=== PATIENT | female | born 2000 | race Caucasian/White ===

== ENCOUNTER 2021-06-15 21:07 | Emergency (ER) | payer SELFPAY ==
[2021-06-15 21:54] VITALS: BP 136/92; PULSE 108; RESP 18; TEMP 36.3; O2SAT 98
[2021-06-16 00:25] VITALS: BP 110/73; PULSE 95; RESP 16; O2SAT 98
[2021-06-16 00:58] LABS: Add Urine Microscopic? YES; Appearance Urine Cloudy (Clear); Bilirubin Urine Negative (Negative); Blood Urine Negative (Negative); Color Urine Yellow (Yellow); Glucose Urine UA Negative (Negative); Ketones Urine Negative (Negative); Leukocyte Esterase Ur 1+ LEU/UL (Negative); Mucus Urine Rare /lpf; Nitrate Urine Negative (Negative); Protein Urine Negative (Negative); Specific Grav Ur 1.029 (1.001-1.035); Squamous Epithelial Cell Urine Many /hpf (Few)
--- NOTE | 2021-06-16 01:29 | ED.GENADULT ---
HPI - General Adult General Chief complaint: Shortness of Breath/Dyspnea Stated complaint: Cough Time Seen by Provider: 06/16/21 00:13 History of Present Illness HPI narrative: Patient is a 20-year-old female who presents ER with reports of runny nose and sore throat. Ongoing over the last 2 days. Her son has similar symptoms as does another individual in the house. Son just tested positive for RSV. Patient reports no fevers or chills or sweats. She also has concerned that she could be . Unknown LMP. Review of Systems Review of Systems: All systems reviewed & are unremarkable except as noted in HPI and below Constitutional: Constitutional: Denies chills, Denies fever(s) and Denies weakness ENT: Reports nasal congestion and Reports sore throat Cardiovascular: Cardiovascular: Denies chest pain, Denies rapid heart rate and Denies radiating jaw, neck or arm pain Respiratory: Respiratory: Reports cough, Denies dyspnea and Denies wheezing Gastrointestinal: Gastrointestinal: Reports abdominal pain (Lower abdominal cramping, nonlocalized), Denies nausea and Denies vomiting PMFSH Past Medical History Medical History (Updated 06/16/21 @ 01:34 by Lonny Mao MD) Osteosarcoma Surgical History Surgical History (Updated 06/16/21 @ 01:30 by Lonny Mao MD) History of section Exam Narrative: GENERAL: Well-appearing, well-nourished, and in no acute distress. HEAD: Normocephalic, atraumatic. ENT: Mucous membranes moist. CHEST: Clear to auscultation. No respiratory distress. HEART: Regular rate and rhythm. Normal peripheral pulses. ABDOMEN: Soft, nontender, nondistended. EXTREMITIES: Normal range of motion. No edema. 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 SKIN: Warm, dry, no rash. NEURO: Alert and oriented x3. Course Course Emergency Course: Patient mainly concerned about a runny nose. Discussed that she likely has RSV as that is what her child has. Discussed insertive management. Discharge home. Patient without urinary frequency urgency or dysuria, will send urine for culture as it appears contaminated. Vital Signs Vital signs: Vital Signs Temperature 97.3 F L 06/15/21 21:54 Pulse Rate 108 H 06/15/21 21:54 Respiratory Rate 18 06/15/21 21:54 Blood Pressure 136/92 H 06/15/21 21:54 Pulse Oximetry 98 06/15/21 21:54 Temperature 97.3 F L 06/15/21 21:54 Pulse Rate 95 06/16/21 00:25 Respiratory Rate 16 06/16/21 00:25 Blood Pressure 110/73 06/16/21 00:25 Pulse Oximetry 98 06/16/21 00:25 Medical Decision Making Vital Signs Vital Signs: Vital Signs Temperature 97.3 F L 06/15/21 21:54 Pulse Rate 108 H 06/15/21 21:54 Respiratory Rate 18 06/15/21 21:54 Blood Pressure 136/92 H 06/15/21 21:54 Pulse Oximetry 98 06/15/21 21:54 Temperature 97.3 F L 06/15/21 21:54 Pulse Rate 95 06/16/21 00:25 Respiratory Rate 16 06/16/21 00:25 Blood Pressure 110/73 06/16/21 00:25 Pulse Oximetry 98 06/16/21 00:25 Lab Data Labs: Lab Results 06/16/21 Range/Units 00:43 Urine Color Yellow (Yellow) Urine Appearance Cloudy H (Clear) Urine pH 6.0 (5.0-9.0) Ur Specific [place] 1.029 (1.001-1.035) Urine Protein Negative (Negative) mg/dL Urine Glucose (UA) Negative (Negative) mg/dL Urine Ketones Negative (Negative) mg/dL Ur Blood (Man) Negative (Negative) Urine Nitrate Negative (Negative) Urine Bilirubin Negative (Negative) Urine Urobilinogen 2.0 H (<2.0) mg/dL Leukocyte Esterase Rfl 1+ H (Negative) OSMAN/UL Urine RBC 6-10 H (0-2) /hpf Urine WBC 10-15 H /hpf Ur Squamous Epith Cells Many H (Few) /hpf Urine Mucus Rare /lpf UCG Bedside Result Negative Reference Range: Negative Discharge Plan Discharge Clinical Impression: Upper respiratory infection Patient D
[2021-06-16 02:15] VITALS: BP 108/68; PULSE 98; RESP 18; O2SAT 98
== END 2021-06-16 02:17 | disposition home or self-care (01) ==
PROVIDERS: Emergency Provider Emergency Medicine
DX: J06.9 Acute upper respiratory infection, unspecified (principal)
CPT/HCPCS: 81001; 81025; 87086; 87088; 99283

== ENCOUNTER 2022-12-26 17:40 | Emergency (ER) | payer OTHER, SELFPAY ==
[2022-12-26 17:48] VITALS: BP 116/59; PULSE 115; RESP 16; TEMP 36.6; O2SAT 99
--- NOTE | 2022-12-26 18:37 | ED.GENADULT ---
HPI - General Adult General Chief complaint: Upper Respiratory Infection Stated complaint: cold / flu Source: patient Mode of arrival: ambulatory Limitations: no limitations History of Present Illness HPI narrative: Patient presents for evaluation of sick symptoms for last 5 days. Symptoms include sore throat and productive cough of clear sputum. She reports some dyspnea on exertion. No fever, chills, nausea, vomiting, diarrhea. No recent sick contacts to her knowledge. She has been taking Robitussin for symptoms. She is currently , approximately 28 weeks gestation. . She does not smoke. She has a hx of osteosarcoma s/p AKA and currently in remission. Related Data Home Medications Medication Instructions Recorded Confirmed magnesium oxide 400 mg (241.3 mg mg 12/26/22 magnesium) tablet potassium chloride 20 mEq meq PO 12/26/22 tablet,extended release(part/cryst) (Klor-Con M) vit no.95-ferrous tablet PO 12/26/22 fumarate 28 mg-folic acid 800 mcg tablet () Allergies Allergy/AdvReac Type Severity Reaction Status Date / Time vancomycin Allergy Hives Verified 12/26/22 17:46 Review of Systems Review of Systems: CONSTITUTIONAL: Denies fever, chills, or sweats. EYES: Denies visual changes, redness, or discharge. ENT: Reports sore throat. Denies rhinorrhea, congestion, or otalgia. CARDIOVASCULAR: Denies chest pain, palpitations, or edema. RESPIRATORY: Reports productive cough of clear sputum with dyspnea on exertion. GASTROINTESTINAL: Denies abdominal pain, nausea, vomiting, or diarrhea. GENITOURINARY: Denies dysuria or hematuria. SKIN: Denies rash or itching. MUSCULOSKELETAL: Denies back pain, joint pain, or myalgia. NEUROLOGIC: Denies headache, numbness, dizziness, or weakness. PSYCHIATRIC: Denies anxiety or depression. [facility] Past Medical History Medical History (Updated 12/26/22 @ 18:52 by Patrick Hua, TERESA, BERTHA) Osteosarcoma Surgical History Surgical History History of section Hx of AKA (above knee amputation) Family History Family History Mother Family history non-contributory Social History Social History Smoking status: Never smoker Substance use: never Living arrangements: with family Gender identity (if verbalized by the patient): Female Spiritual care concerns: No Exam Narrative: GENERAL: Well-appearing, well-nourished, and in no acute distress. HEAD: Normocephalic, atraumatic. EYES: PERRLA and EOMI. ENT: Nares clear, no rhinorrhea or epistaxis. Mucous membranes moist. Bilateral tonsillar swelling without erythema or exudate. Uvula is midline. Bilateral TMs pearly das nonbulging NECK: Supple. No adenopathy or masses. No carotid bruits or JVD CHEST: Clear to auscultation. Cough present on exam. No respiratory distress. No wheezes rales or rhonchi HEART: rate 105. Regular rhythm. No murmur heard. Normal peripheral pulses. ABDOMEN: Soft, nontender, nondistended, normal active bowel sounds. EXTREMITIES: Normal range of motion. No edema. SKIN: Warm, dry, no rash. NEURO: No focal deficits. Alert and oriented x3. PSYCH: Normal mood and affect. Course Course Emergency Course: This is a 22 old female who presented for evaluation of sick symptoms. Rapid strep was negative. I did offer additional testing including flu/COVID swabs and chest x-ray. She declined. She appears to have a viral respiratory infection. Doubt PE. Saturations are normal. No recent leg swelling. She may take guaifenesin her dextromethorphan for cough. She was advised that if she has worsening shortness of breath she should go to the emergency department. She will call her OBGYN and PCP tomorrow and she is in agreement with plan of care. Level of Care: Exp
== END 2022-12-26 18:57 | disposition home or self-care (01) ==
PROVIDERS: Emergency Provider Nurse Practitioner
DX: O99.513 Diseases of the respiratory system complicating pregnancy, third trimester (principal); Z3A.28 28 weeks gestation of pregnancy; J06.9 Acute upper respiratory infection, unspecified; Z89.611 Acquired absence of right leg above knee; Z85.830 Personal history of malignant neoplasm of bone
CPT/HCPCS: 87081; 87880; 99213; G0463

== ENCOUNTER 2023-03-24 12:07 | Emergency (ER) | payer OTHER, SELFPAY ==
[2023-03-24] VITALS (45 sets, daily range): BP systolic 89–119; BP diastolic 63–80; PULSE 72; RESP 18; TEMP 36.7; O2SAT 93–100
--- NOTE | 2023-03-24 12:47 | ECG_ITS ---
Measurements Intervals [place] Rate: 65 P: 8 NC: 134 QRS: 4 QRSD: 73 T: 22 QT: 448 QTc: 468 Interpretive Statements SINUS RHYTHM VOLTAGE CRITERIA FOR LVH, POSSIBLY NORMAL FOR AGE BORDERLINE eCG NO PREVIOUS ECG AVAILABLE FOR COMPARISON Electronically Signed On 03-24-2023 13:35:30 CDT by Maxx Castro M.D.
[2023-03-24 13:17] LABS: Basophils Absolute Auto 0.1 K/mm3 (0.0-0.1); Basophils Percent Auto 0.5 % (0.2-1.2); Eosinophils Absolute Auto 0.3 K/mm3 (0-0.3); Eosinophils Percent Auto 2.5 % (0-4.4); Hemoglobin 11.6 g/dL (12.0-15.0); Immature Granulocyte Absolute 0.04 K/mm3 (0.00-0.031); Immature Granulocyte Percent A 0.3 % (0-0.5); Lymphocytes Absolute Auto 3.85 K/mm3 (0.9-3.2); Mean Corpuscular HGB Conc 30.5 g/dl (32-36); Mean Corpuscular Hemoglobin 24.9 pg (26-34); Mean Corpuscular Volume 81.5 fl (80-100); Mean Platelet Volume 10.5 fl (7.4-10.4); Monocytes Absolute Auto 0.4 K/mm3 (0.1-0.6); Monocytes Percent Auto 3.7 % (2.6-8.5); Neutrophils Absolute Auto 7.3 K/mm3 (1.3-6.7); Platelet Count Result 494 k/mm3 (150-375); Red Blood Count 4.66 M/mm3 (4.2-5.4); Red Cell Distribution Width 15.5 % (11.5-14.5)
[2023-03-24 13:28] LABS: Alanine Aminotransferase 18 U/L (6-35); Albumin Level 4.1 g/dL (3.5-5.1); Alkaline Phosphatase 150 U/L (38-126); Anion Gap 7 mmol/L (8-16); Aspartate Amino Transferase 19 U/L (14-36); Bilirubin,Total 0.3 mg/dL (0.2-1.3); Blood Urea Nitrogen 16 mg/dL (7-17); Calcium 9.5 mg/dL (8.4-10.2); Carbon Dioxide 25 mmol/L (22-30); Chloride 104 mmol/L (98-107); Estimated CRCL calculation 72 ml/min; Estimated Glomerular Filt Rate > 60; Glucose 85 mg/dL (65-110); Magnesium 1.6 mg/dL (1.6-2.3); Potassium 3.2 mmol/L (3.4-5.0); Sodium 136 mmol/L (137-145)
[2023-03-24 13:29] LABS: Acetaminophen < 10 ug/mL (10-30); Ethanol < 10 mg/dL (<10); Salicylate < 1.0 mg/dL (2-20)
[2023-03-24 13:50] LABS: Influenza A QL RT-PCR Negative (Negative); Influenza B QL RT-PCR Negative (Negative); RSV RNA, RT-PCR Negative (Negative); SARS-CoV-2 RNA PCR Negative (Negative)
--- NOTE | 2023-03-24 14:04 | ED.GENADULT ---
HPI - General Adult General Chief complaint: Psychiatric Symptoms Stated complaint: psych Time Seen by Provider: 03/24/23 12:46 History of Present Illness HPI narrative: 22-year-old female presented to ED for evaluation of worsening depression. Patient does have a history of depression and does follow-up with a counselor. Patient states she is approximately 2 weeks and started having worsening depression today. Patient states he does have suicidal thoughts but has no intent to act on them. Patient denies taking medications alcohol to injure herself. Patient states she has not attempted to harm herself. Patient states that she does feel overwhelmed while taking care of the child and her additional children. Related Data Home Medications Medication Instructions Recorded Confirmed magnesium oxide 400 mg (241.3 mg mg 12/26/22 magnesium) tablet potassium chloride 20 mEq meq PO 12/26/22 tablet,extended release(part/cryst) (Klor-Con M) vit no.95-ferrous tablet PO 12/26/22 fumarate 28 mg-folic acid 800 mcg tablet () Allergies Allergy/AdvReac Type Severity Reaction Status Date / Time vancomycin Allergy Hives Verified 03/24/23 12:12 Review of Systems Review of Systems: All systems reviewed & are unremarkable except as noted in HPI and below PMFSH Past Medical History Medical History (Updated 03/24/23 @ 17:34 by Kael Coppola MD) Osteosarcoma Surgical History Surgical History History of section Hx of AKA (above knee amputation) Family History Family History Mother Family history non-contributory Social History Social History Smoking status: Never smoker Substance use: never Substance use type: does not use Living arrangements: with family Gender identity (if verbalized by the patient): Female Spiritual care concerns: No Exam Narrative: APPEARANCE: Well appearing, no pain, no distress, well-nourished. HEAD: normocephalic, atraumatic. EYES: PERRLA/EOMI, conjunctivae clear. NOSE: Normal no drainage EARS:TMS clear with good light reflex. THROAT: Pharynx clear, no exudate. NECK: Supple. No adenopathy, no masses. RESPIRATORY: Airway patent, respirations nonlabored. Clear to auscultation bilaterally, no rales, rhonchi, wheezing. CARDIOVASCULAR: Regular rate and rhythm without murmurs rubs or gallops. ABDOMINAL: Soft, nontender, nondistended, normal bowel sounds MUSCULOSKELETAL: Moves all extremities. Strength/ROM intact, No edema, No calf tenderness. NEURO: Alert. Cranial nerves II through XII intact. Grossly intact SKIN: Warm, dry. Normal Color Course Course Emergency Course: 22-year-old female with history of depression presented the ED for worsening depression. Patient was evaluated the crisis counselor and patient signed a safety agreement. Patient does have follow-up with psychiatry and counseling. Patient was also provided additional resources for outpatient. All questions and concerns were addressed and patient was comfortable with the plan for discharge and close follow-up. Reevaluation(s) Reevaluation #1: Patient is medically cleared for crisis evaluation. Patient is medically cleared for transport and inpatient psychiatric hospitalization as needed Vital Signs Vital signs: Vital Signs Temperature 98.1 F 03/24/23 12:06 Pulse Rate 72 03/24/23 12:06 Respiratory Rate 18 03/24/23 12:06 Blood Pressure 105/69 03/24/23 12:06 Pulse Oximetry 100 03/24/23 12:06 Oxygen Delivery Room Air 03/24/23 12:06 Temperature 98.1 F 03/24/23 12:06 Pulse Rate 72 03/24/23 12:06 Respiratory Rate 18 03/24/23 12:06 Blood Pressure 119/73 03/24/23 17:16 Pulse Oximetry 100 03/24/23 17:19 Oxygen Delivery Room Air 03/08
[2023-03-24 14:06] LABS: Appearance Urine Clear (Clear); Bacteria Urine None Seen /hpf; Bilirubin Urine Negative (Negative); Blood Urine 3+ (Negative); Color Urine Yellow (Yellow); Glucose Urine UA Negative (Negative); Ketones Urine Negative (Negative); Leukocyte Esterase Ur 2+ LEU/UL (Negative); Nitrate Urine Negative (Negative); Non Pathogenic Casts 0-2; Protein Urine Trace mg/dL (Negative); RBC Urine >100 /hpf (0-2); Specific Grav Ur 1.021 (1.001-1.035); Squamous Epithelial Cell Urine Occasional /hpf (Few); Urobilinogen Urine 0.2 mg/dL (<2.0); pH Urine 5.5 (5.0-9.0)
[2023-03-24 14:15] LABS: Amphetamine Screen Urine Negative (Negative); Barbiturate Screen Urine Negative (Negative); Benzodiazepines Screen Urine Negative (Negative); Cannabinoid Screen Urine Negative (Negative); Cocaine Screen Urine Negative (Negative); Methadone Screen Urine Negative (Negative); Opiate Screen Urine Negative (Negative); Phencyclidine Screen Urine Negative (Negative)
[2023-03-24 14:16] LABS: Add Urine Microscopic? YES
== END 2023-03-24 17:45 | disposition home or self-care (01) ==
PROVIDERS: Emergency Provider Emergency Medicine
DX: F32.A Depression, unspecified (principal); Z20.822 Contact with and (suspected) exposure to COVID-19
CPT/HCPCS: 36415; 80053; 80307; 81001; 81025; 83735; 84443; 85025; 87086; 87088; 87637; 93005; 99284

== ENCOUNTER 2024-06-08 10:30 | Outpatient (RCR) | payer OTHER, SELFPAY ==
--- NOTE | 2024-03-13 09:14 | OPREHPOC ---
Outpatient Therapy Plan of Care This is a Multidisciplinary Plan of Care that may contain components documented by all disciplines (PT, OT, and ST.) PT Problem 1 PT Problem #1 Knowledge Deficit PT Goal 1 Goal [place] with HEP PT Problem 2 PT Problem #2 Impaired Strength PT Goal 1 Goal Improve R hip flexor strength to 4/5 to help improve progression of prosthesis Target Visit 6 PT Goal 2 Goal Improve R hip abductor strength to 4/5 to help improve lateral stability of pelvis Target Visit 6 PT Problem 3 PT Problem #3 Impaired Strength PT Goal 1 Goal Improve R hip extensor strength to 4+/5 to help improve push off ant stability of prosthesis with gait Target Visit 6 PT Goal 2 Goal Patient will demonstrate ability to perform flexion plane prosthetic advancement without circumduction for 5 steps Target Visit 6
--- NOTE | 2024-03-13 09:14 | PTOPEVAL1 ---
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 She uses crutches for balance and mobility. She has a 3 small children at home including a 1 year old. Denies any falls in the past few months. She has fallen when just using crutches as she ambulates frequently without it. She has has her new prosthetic for 3 weeks. Her ultimate goal would be to be able to walk without AD. Denies any pain in back or stump. She does get some pain in left leg if standing too long. Reported Pain Level Pain Score 0: Self Report Assessment PT Clinical Summary Patient presents to clinic with AKA prosthetic. Poor gait pattern indicated by poor swing and rotation of pelvis to open to prosthetic. Severe weakness noted in R hip flexor, abductors, and extensors. Patient at this time needs significant strengthening and mobilization of right stump to ensure full gait progress and stabilization in both gait and stance. Needs emphasis on strengthening at this time prior to transition to gait training. Plan of Care Interventions Electrical Stimulation,Gait Training,Hot Pack/Cold Pack,Manual Therapy,Neuro Re-education, Therapeutic Activities,Therapeutic Exercise PT Services Indicated Yes Treatment Frequency and 1x/week for 6 visits Duration These treatments will address the objective and functional deficits as defined above. The patient will be advanced safely and appropriately in order for the patient to progress towards his/her prior level of function. Additional exercises will be introduced and as well as a comprehensive home exercise program upon discharge, if needed, ?to ensure carryover of functional gains achieved in the clinic. This treatment plan has been reviewed and agreement upon by the patient.
--- NOTE | 2024-03-27 11:44 | PCPTNOTE ---
Covid + called and cancelled. CRISTIANA
--- NOTE | 2024-05-07 17:45 | PCPTNOTE ---
Patient rescheduled today's progress note due to a sick child.
--- NOTE | 2024-05-21 10:01 | OPREHPOC ---
Outpatient Therapy Plan of Care This is a Multidisciplinary Plan of Care that may contain components documented by all disciplines (PT, OT, and ST.) PT Problem 1 PT Problem #1 Knowledge Deficit PT Goal 1 Goal / Goal Update [place] with HEP Target Visit 4 Progress Met PT Problem 2 PT Problem #2 Impaired Strength PT Goal 1 Goal / Goal Update Improve R hip flexor strength to 4/5 to help improve progression of prosthesis Target Visit 6 PT Goal 2 Goal / Goal Update Improve R hip abductor strength to 4/5 to help improve lateral stability of pelvis Target Visit 12 Progress Not Met PT Problem 3 PT Problem #3 Impaired Strength PT Goal 1 Goal / Goal Update Improve R hip extensor strength to 4+/5 to help improve push off ant stability of prosthesis with gait Target Visit 12 Progress Not Met PT Goal 2 Goal / Goal Update Patient will demonstrate ability to perform flexion plane prosthetic advancement without circumduction for 5 steps with use of axillary crutch x 1 Target Visit 12 Progress Not Met PT Goal 1 Goal / Goal Update Patient will demonstrate ability to perform sit to stand transfer with R LE prosthesis engaged Target Visit 12 PT Goal 2 Goal / Goal Update Patient will demonstrate ability to carry 10# in R UE with use of single axillary crutch in L UE and donning of R LE prosthesis Target Visit 12
--- NOTE | 2024-05-21 10:02 | PTOPPROG ---
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 She did not bring her prosthesis. 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 She is still relying on dimple axillary crutches to hold herself upright and has to carry her child while using them. Assessment PT Clinical Summary Patient has shown some improvement in hip strength but has shown excellent improvement in amputated hip ROM allowing for proper gait cycle. Patient is suitable for transition to gait training with use of prosthesis and axillary crutches at this time to regain independence. Plan of Care Interventions Electrical Stimulation,Gait Training,Hot Pack/Cold Pack,Manual Therapy,Neuro Re-education, Therapeutic Activities,Therapeutic Exercise PT Services Indicated Yes Treatment Frequency and 1-2x/week for 6 visits Duration These treatments will address the objective and functional deficits as defined above. The patient will be advanced safely and appropriately in order for the patient to progress towards his/her prior level of function. Additional exercises will be introduced and as well as a comprehensive home exercise program upon discharge, if needed, ?to ensure carryover of functional gains achieved in the clinic. This treatment plan has been reviewed and agreement upon by the patient.
--- NOTE | 2024-06-12 08:52 | PCPTNOTE ---
This treatment is being continued on visit number [id number] Please see documentation on both accounts to view progress. Completed interventions, outcomes, and problems have been marked as Inactive to facilitate the copying of the Care plan routine for recurring accounts.
== END 2024-06-11 23:59 | disposition home or self-care (01) ==
LOC: ANHPT 10:30
DX: Z97.10 Presence of artificial limb (complete) (partial), unspecified (principal); R26.2 Difficulty in walking, not elsewhere classified; R53.1 Weakness
CPT/HCPCS: 97110; 97116; 97140; 97161; 97530

== ENCOUNTER 2024-07-16 09:00 | Outpatient (RCR) | payer OTHER, SELFPAY ==
--- NOTE | 2024-06-12 08:53 | PCPTNOTE ---
This treatment is being continued from visit number [id number] Please see documentation on both accounts to view progress. Completed interventions, outcomes, and problems have been marked as Inactive to facilitate the copying of the Care plan routine for recurring accounts.
--- NOTE | 2024-06-19 12:00 | OPREHPOC ---
Outpatient Therapy Plan of Care This is a Multidisciplinary Plan of Care that may contain components documented by all disciplines (PT, OT, and ST.) PT Problem 1 PT Problem #1 Knowledge Deficit PT Goal 1 Goal / Goal Update [place] with HEP 06-19-24 progress goal met continue to progress education and HEP Target Visit 18 Progress Met PT Problem 2 PT Problem #2 Impaired Strength PT Goal 1 Goal / Goal Update Improve R hip flexor strength to 4/5 to help improve progression of prosthesis 06-19-24 progress goal not met NEW GOAL: 1* increase R hip flexion strength, with walking pt advance R LE without trunk rotation Target Visit 18 PT Goal 2 Goal / Goal Update Improve R hip abductor strength to 4/5 to help improve lateral stability of pelvis 06-19-24 progress goal met NEW GOAL: * increase hip abduction R strength- in standing pt able to weight shift onto R LE without lateral motion of hip Target Visit 18 Progress Not Met PT Problem 3 PT Problem #3 Impaired Strength PT Goal 1 Goal / Goal Update Improve R hip extensor strength to 4+/5 to help improve push off ant stability of prosthesis with gait 06-19-24 progress goal met; Target Visit 12 Progress Met PT Goal 2 Goal / Goal Update Patient will demonstrate ability to perform flexion plane prosthetic advancement without circumduction for 5 steps with use of axillary crutch x 1 06-19-24 progress goal met Target Visit 12 Progress Met PT Problem 4 PT Problem #4 Impaired Functional Mobil PT Goal 1 Goal / Goal Update Patient will demonstrate ability to perform sit to stand transfer with R LE prosthesis engaged 06-19-24 progress goal met NEW GOAL: 1* 5 reps sit/stand time of 13 seconds, without use of UE and good control of R LE 2* maximum walking distance with 1 crutch 300' Target Visit 18 PT Goal 2 Goal / Goal Update Patient will demonstrate ability to carry 10# in R UE with use of single axillary crutch in L UE and donning of R LE prosthesis 06-19-24 progress goal met Target Visit 12 Progress Met
--- NOTE | 2024-06-19 12:01 | PTOPPROG ---
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 have not had any falls. is wanting to look for a job now, kids are in school. Assessment PT Clinical Summary Bonilla has received 10 PT sessions. Compared to the initial evaluation: improved with strength of R hip abduction and extension musculature; good flexibility of R hip flexion, extension and abduction; 5 reps sit/stand time of 16 seconds without use of UE's & decreased control of R foot placement and knee flexion; maximum walking with one crutch 200'; improved gait pattern with R LE prosthesis--can flex hip and knee to advance prosthesis, but has trunk lean She reports wearing time of prosthesis of 25 minutes due to R LE pain. No issues with skin of R stump. The goals were partially met. Continue PT to further increase trunk and hip strength, improve/ normalize gait pattern and mobility skills. Plan of Care Interventions Gait Training,Neuro Re-education,Patient/Caregiver Education,Therapeutic Activities,Therapeutic Exercise PT Services Indicated Yes Treatment Frequency and 1-2x/wk for 8 visits Duration These treatments will address the objective and functional deficits as defined above. The patient will be advanced safely and appropriately in order for the patient to progress towards his/her prior level of function. Additional exercises will be introduced and as well as a comprehensive home exercise program upon discharge, if needed, ?to ensure carryover of functional gains achieved in the clinic. This treatment plan has been reviewed and agreement upon by the patient.
--- NOTE | 2024-06-28 09:13 | PCPTNOTE ---
Pt called to cancel her appointment today due to illness.
--- NOTE | 2024-07-04 09:18 | PCPTNOTE ---
Called and canceled due to transportation issue. AKS
--- NOTE | 2024-07-17 09:44 | OPREHPOC ---
Outpatient Therapy Plan of Care This is a Multidisciplinary Plan of Care that may contain components documented by all disciplines (PT, OT, and ST.) PT Problem 1 PT Problem #1 Knowledge Deficit PT Goal 1 Goal / Goal Update Carey with HEP 06-19-24 progress goal met continue to progress education and HEP Target Visit 18 Progress Met PT Problem 2 PT Problem #2 Impaired Strength PT Goal 1 Goal / Goal Update Improve R hip flexor strength to 4/5 to help improve progression of prosthesis 06-19-24 progress goal not met NEW GOAL: 1* increase R hip flexion strength, with walking pt advance R LE without trunk rotation Needs continued reinforcement to improve foot clearance Target Visit 23 PT Goal 2 Goal / Goal Update Improve R hip abductor strength to 4/5 to help improve lateral stability of pelvis goal met NEW GOAL: * increase hip abduction R strength- in standing pt able to weight shift onto R LE without lateral motion of hip -Needs continued reinforcement Target Visit 23 Progress Partially Met PT Problem 3 PT Problem #3 Impaired Strength PT Goal 1 Goal / Goal Update Improve R hip extensor strength to 4+/5 to help improve push off ant stability of prosthesis with gait 06-19-24 progress goal met; Target Visit 12 Progress Met PT Goal 2 Goal / Goal Update Patient will demonstrate ability to perform flexion plane prosthetic advancement without circumduction for 5 steps with use of axillary crutch x 1 06-19-24 progress goal met Target Visit 12 Progress Met PT Problem 4 PT Problem #4 Impaired Coordination PT Goal 1 Goal / Goal Update Patient will demonstrate ability to perform sit to stand transfer with R LE prosthesis engaged 06-19-24 progress goal met NEW GOAL: 1* 5 reps sit/stand time of 13 seconds, without use of UE and good control of R LE 2* maximum walking distance with 1 crutch 300' Needs continued work on updated goals 1 and 2 Target Visit 23 Progress Partially Met PT Goal 2 Goal / Goal Update Patient will demonstrate ability to carry 10# in R UE with use of single axillary crutch in L UE and donning of R LE prosthesis 06-19-24 progress goal met Target Visit 12 Progress Met
--- NOTE | 2024-07-17 09:45 | PTOPPROG ---
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 Has been wearing for 30 on and 30 off at home. She continues to use both crutches when training. Feels at times that the prosthetic is moving laterally. Reports that she still feels to a degree she is limited by her anxiety and fear of falling. Assessment PT Clinical Summary Patient continues to present with difficulty in navigation of prosthetic limb including poor foot clearance. She continues to show lateral hip stability weakness which increases difficulty with left stance phase. Patient continues to have a lot of apprehension when relying on single crutch and use of prosthetic and needs continuous reinforcement. Will continue to benefit form skilled therapy to meet functional listed goals as she needs to be as independent as possible to help navigate home and community while caring for her small dependent children. Plan of Care Interventions Gait Training,Neuro Re-education,Patient/Caregiver Education,Therapeutic Activities,Therapeutic Exercise PT Services Indicated Yes Treatment Frequency and 1-2x/week for 8 visits Duration These treatments will address the objective and functional deficits as defined above. The patient will be advanced safely and appropriately in order for the patient to progress towards his/her prior level of function. Additional exercises will be introduced and as well as a comprehensive home exercise program upon discharge, if needed, ?to ensure carryover of functional gains achieved in the clinic. This treatment plan has been reviewed and agreement upon by the patient.
--- NOTE | 2024-09-10 08:55 | PTOPDC ---
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 Assessment PT Clinical Summary Bonilla has not returned to PT since last treatment on July 16. Discharge PT due to pt not attending. The goals were not addressed. Plan of Care PT Services Indicated No
== END 2024-09-10 14:14 | disposition home or self-care (01) ==
LOC: ANHPT 09:00
DX: Z97.10 Presence of artificial limb (complete) (partial), unspecified (principal); R26.2 Difficulty in walking, not elsewhere classified; R53.1 Weakness
CPT/HCPCS: 97110; 97116; 97530

== ENCOUNTER 2024-07-25 16:38 | Emergency (ER) | payer SELFPAY ==
[2024-07-25 16:43] VITALS: BP 131/80; PULSE 113; RESP 16; TEMP 37.1; O2SAT 99
--- NOTE | 2024-07-25 17:00 | ED_ITS ---
HPI - Ear Problem General Chief complaint: Ear Stated complaint: ear pain Time Seen by Provider: 07/25/24 17:00 Source: patient and RN notes reviewed Mode of arrival: ambulatory Limitations: no limitations History of Present Illness HPI Narrative: 23-year-old female presents with concern for right ear pain for 2 days. Reports it hurts to touch the ear. She denies drainage from the ear. MD Complaint: ear pain Related Data Home Medications ?Medication ?Instructions ?Recorded ?Confirmed ?Last Taken ?Type lamotrigine 25 mg tablet mg 07/25/24 Unknown History sertraline 50 mg tablet mg 07/25/24 Unknown History Allergies Allergy/AdvReac Type Severity Reaction Status Date / Time vancomycin Allergy Hives Verified 03/24/23 12:12 Review of Systems Review of Systems: CONSTITUTIONAL: Denies malaise, chills, sweats, or fever. EYES: Denies visual changes, redness, or discharge. ENT: Denies rhinorrhea, congestion, sinus pain, and sore throat. Reports right ear pain CARDIOVASCULAR: Denies chest pain, palpitations, or edema. RESPIRATORY: Denies cough. Denies dyspnea. GASTROINTESTINAL: Denies abdominal pain, nausea, vomiting, diarrhea SKIN: Denies rash or itching. MUSCULOSKELETAL: Denies myalgia. NEUROLOGIC: Denies headache. All systems reviewed & are unremarkable except as noted in HPI and below PMFSH Past Medical History Medical History (Updated 07/25/24 @ 17:07 by Fatemeh Ramirez NP) Osteosarcoma Surgical History Surgical History History of section Hx of AKA (above knee amputation) Family History Family History Mother Family history non-contributory Social History Social History Smoking status: Never smoker Substance use: never Substance use type: does not use Living arrangements: with family Gender identity (if verbalized by the patient): Female Spiritual care concerns: No Comments At time of signature, agree with nursing past medical, surgical, social and family history. There is no relevant family history pertinent to the presenting complaint Exam Narrative: GENERAL: Well-appearing, well-nourished, and in no acute distress. HEAD: Normocephalic EYES: PERRLA, conjunctivae clear ENT: Nares clear, turbinates edematous, clear discharge. Mucous membranes moist. TM pearly das with dull light reflex bilaterally; right tragal tenderness with the AC erythema and edema, small amount of drainage. Oropharynx not erythematous without lesions. Tonsils not enlarged and without exudate, no drooling, no hoarseness, no trismus, uvula midline. NECK: Supple. No lymphadenopathy CHEST: Clear to auscultation, breath sounds equal. No wheezing, rhonchi, rales, or stridor. No respiratory distress, speaks in full sentences. HEART: Regular rate and rhythm. No murmur heard. SKIN: Warm, dry, no rash. NEURO: Alert and oriented x3. PSYCH: Normal mood and affect Course Course Emergency Course: Patient is aware of diagnosis, understands and agrees to treatment plan. Anticipatory guidance given. Patient agrees to follow-up as directed and is aware of reasons to seek care at the emergency department. Portions of this record may have been created with voice recognition software Level of Care: Express Care Visit Vital Signs Vital signs: Vital Signs Temperature 98.8 F 07/25/24 16:43 Pulse Rate 113 H 07/25/24 16:43 Respiratory Rate 16 07/25/24 16:43 Blood Pressure 131/80 07/25/24 16:43 Pulse Oximetry 99 07/25/24 16:43 Oxygen Delivery Room Air 07/25/24 16:43 Temperature 98.8 F 07/25/24 16:43 Pulse Rate 113 H 07/25/24 16:43 Respiratory Rate 16 07/25/24 16:43 Blood Pressure 131/80 07/25/24 16:43 Pulse Oximetry 99 07/25/24 16:43 Oxygen Delivery Room Air 07/25/24 16:43 Reviewed. Medical Decision Making MDM Narrative Medical decision making narrative: I evaluated this in the [facility]. History is obtained from patient who is an independent historian and physical exam was performed.? Available medical records were reviewed. ? Exam findings and relevant testing show no acute concerns or changes; patient is non-toxic appearing and is in no distress. Differential diagnosis considered: Landon virus, strep pharyngitis, allergic rhinitis, upper respiratory tract infection, sinusitis, rhinosinusitis, nasopharyngitis. viral pharyngitis, otitis media, otitis externa, otitis effusion, cerumen impaction, foreign body. Exam findings show no acute concerns or changes; patient is non-toxic appearing and is in no distress. Patient is appropriate for outpatient treatment and follow-up. ? Differential diagnosis and treatment plan were discussed with the patient. Patient agrees with discussion and after shared medical decision making agrees with plan of care. All questions were answered to the patient's satisfaction. Patient is appropriate for outpatient treatment and follow-up. Vital Signs Vital Signs: Vital Signs Temperature 98.8 F 07/25/24 16:43 Pulse Rate 113 H 07/25/24 16:43 Respiratory Rate 16 07/25/24 16:43 Blood Pressure 131/80 07/25/24 16:43 Pulse Oximetry 99 07/25/24 16:43 Oxygen Delivery Room Air 07/25/24 16:43 Temperature 98.8 F 07/25/24 16:43 Pulse Rate 113 H 07/25/24 16:43 Respiratory Rate 16 07/25/24 16:43 Blood Pressure 131/80 07/25/24 16:43 Pulse Oximetry 99 07/25/24 16:43 Oxygen Delivery Room Air 07/25/24 16:43 Critical Care Time Critical Care Time Critical Care Time: No Discharge Plan Discharge Clinical Impression: Otitis externa Patient Disposition: Home, Self-Care Condition: Stable Instructions: How to Use Ear Drops (ED) Additional Instructions: 1) Please follow-up with your primary care doctor in the next 1-2 days. 2) If you have any worsening of symptoms or any other urgent concerns please go to the ER. 3) Please take medications as prescribed and continue taking your home medications as usual. 4) Please read and follow information included in discharge instructions. Patient Language: Nepalese Prescriptions: New [id number] 3.5-10,000-1 mg/mL-unit/mL-% drops,suspension 4 drop LEFT EAR Q8H 7 Days Qty: 10 0RF No Action lamotrigine 25 mg tablet sertraline 50 mg tablet Follow-up/Referrals: PHYSICIAN,[employer]PECTOR [Primary Care Provider] - Time of Disposition: 17:07
== END 2024-07-25 17:12 | disposition home or self-care (01) ==
PROVIDERS: Emergency Provider Nurse Practitioner
DX: H60.91 Unspecified otitis externa, right ear (principal); Z85.830 Personal history of malignant neoplasm of bone; Z89.611 Acquired absence of right leg above knee
CPT/HCPCS: 99213; G0463